=== PATIENT | male | born 2000 | race Hispanic/Latino ===

== ENCOUNTER 2024-06-18 06:03 | Day surgery (SDC) | payer OTHER ==
[~2024-06-18] VITALS: Ht 185.4 cm; Wt 109.6 kg
[~2024-06-18 06:03] MED LIST: ceFAZolin SOD 2 GM in IV 1 EA IV ONE
[2024-06-18] MEDS ORDERED: LR 1,000 ML IV SCH (06:35)
[2024-06-18] MEDS ORDERED: LIDOCAINE 2% INJ 100 MG/5 ML SYRINGE As Ordered ONE (06:57)
[2024-06-18] MEDS ORDERED: ONDANSETRON 4MG 2ML VIAL As Ordered ONE (06:57)
[2024-06-18] MEDS ORDERED: propofoL 200 MG/20 ML VIAL As Ordered ONE (06:57)
[2024-06-18] MEDS ORDERED: fentaNYL 100 MCG/2 ML INJECTION As Ordered ONE (06:57)
[2024-06-18] MEDS ORDERED: MIDAZOLAM INJ 2MG/2ML VIAL As Ordered ONE (06:58)
[2024-06-18] MEDS ORDERED: dexAMETHasone 10MG/1ML VIAL PRES.FREE PN ONE (07:05)
[2024-06-18] MEDS ORDERED: MIDAZOLAM INJ 2MG/2ML VIAL IV PRN (07:05)
[2024-06-18] MEDS ORDERED: fentaNYL 100 MCG/2 ML INJECTION IV PRN ×2 (07:05→09:35)
[2024-06-18] MEDS ORDERED: TRANEXAMIC ACID 100 MG/ML 10ML VIAL As Ordered ONE (07:11)
[2024-06-18] MEDS ORDERED: EPINEPHrine 1MG/ML INJ 30ML MD-VIAL As Ordered ONE (07:11)
[2024-06-18] MEDS ORDERED: ROCURONIUM BROMIDE 50MG/5ML VIAL As Ordered ONE (07:13)
[2024-06-18] MEDS: ceFAZolin SOD 2 GM IV ONCE IV ONE (07:29)
[2024-06-18] MEDS: TRANEXAMIC ACID 100 MG/ML 10ML VIAL IV ONE (07:29)
[2024-06-18] MEDS ORDERED: HYDROmorphone HCL 2MG/ML 1ML VIAL As Ordered ONE (07:43)
[2024-06-18] MEDS ORDERED: ePHEDrine SULFATE 25 MG/5 ML(5MG/ML) SYRINGE As Ordered ONE (08:23)
[2024-06-18] MEDS ORDERED: GLYCOPYRROLATE INJ 0.2 MG/ML 2 ML VIAL As Ordered ONE (08:30)
[2024-06-18] MEDS ORDERED: SUGAMMADEX SODIUM 500 MG/5 ML VIAL (BRIDION) As Ordered ONE (09:02)
[2024-06-18] MEDS ORDERED: KETOROLAC 30 MG/ML 1ML VIAL As Ordered ONE (09:02)
[2024-06-18] MEDS: BUPivacaine LIPOSOME/PF 266MG 20ML VIAL (13.3MG/ML)(EXPAREL) As Ordered ONE (09:15)
[2024-06-18] MEDS ORDERED: ONDANSETRON 4MG 2ML VIAL IV PRN (09:35)
[2024-06-18] MEDS: oxyCODONE 5MG TAB PO PRN (10:05)
[2024-06-18 11:00] VITALS: BP 136/75; TEMP 98
[2024-06-18 11:20] VITALS: O2SAT 99
== END 2024-06-18 11:40 | disposition home or self-care (01) ==
LOC: M SDC 06:03
PROVIDERS: ATTEND Orthopaedic Surgery
DX: M23.221 Derangement of posterior horn of medial meniscus due to old tear or injury, right knee (principal); Z91.010 Allergy to peanuts
CPT/HCPCS: 29882; 97116; C1713; J0171; J0665; J0666; J0690; J1171; J1596; J1885; J2250; J2405; J3010

== ENCOUNTER 2024-11-07 03:31 | Emergency (ER) | payer OTHER ==
[~2024-11-07] VITALS: Ht 185.4 cm; Wt 113.6 kg
[2024-11-07] MEDS: ACETAMINOPHEN 500 MG TAB PO ONE (07:28)
[2024-11-07] MEDS: TETANUS/DIPHTH/ACEL. PERTUSSIS 0.5 ML SYR IM.IMMUN ONE (07:29)
[2024-11-07 08:00] VITALS: BP 135/66; O2SAT 98
[2024-11-07] MEDS ORDERED: BACIOIN23 TOP (08:07)
[2024-11-07 08:20] VITALS: TEMP 99
== END 2024-11-07 08:22 | disposition home or self-care (01) ==
LOC: M ED 03:31 → EDBD 03:31 → M ED 08:22
DX: S02.2XXA Fracture of nasal bones, initial encounter for closed fracture (principal); Y04.8XXA Assault by other bodily force, initial encounter; F10.10 Alcohol abuse, uncomplicated; Z79.2 Long term (current) use of antibiotics; Y92.89 Other specified places as the place of occurrence of the external cause; Y93.89 Activity, other specified; Y99.9 Unspecified external cause status; Z23 Encounter for immunization